=== PATIENT | male | born 1955 | race Caucasian/White ===

== ENCOUNTER 2017-04-14 19:58 | Emergency (ER) | payer BC ==
[~2017-04-14] VITALS: Ht 177.8 cm; Wt 70.7 kg
[2017-04-14 20:02] VITALS: TEMP 36.6; Ht 177.8 cm; Wt 70.7 kg
[2017-04-14] MEDS ORDERED: OMEG10007 PO (20:19)
--- NOTE | 2017-04-14 20:45 | DIAGNOSTIC IMAGING REPORT ---
RIGHT CLAVICLE CLINICAL HISTORY: right clavicle injury Right trauma COMPARISON: None. DISCUSSION: Grade 1 separation right acromioclavicular joint. No evidence for fracture. There is no evidence for soft tissue swelling. IMPRESSION: Grade 1 separation right acromioclavicular joint The above report was generated using voice recognition software. It may contain grammatical, syntax or spelling errors. Electronically signed by: Delfino Don M.D. 04/14/2017 8:44 PM Dictated Date/Time: 04/14/2017 8:44 PM
--- NOTE | 2017-04-14 21:47 | DIAGNOSTIC IMAGING REPORT ---
RIGHT UPPER EXTREMITY WITHOUT CT DOSE: 459.39 mGy.cm HISTORY: Trauma right clavicle injury, attn sternoclavicular joint Right TECHNIQUE: Multiaxial CT images of the right shoulder were performed and reformatted in the sagittal and coronal plane without the use of contrast. COMPARISON: Routine films same date FINDINGS: Examination can shows a grade 1 separation right acromioclavicular joint. No evidence for fracture. No evidence of dislocation. All remaining soft tissue structures are unremarkable. Pulmonary apex is clear. IMPRESSION: Mild grade 1 separation right acromioclavicular joint. No evidence for fracture. The above report was generated using voice recognition software. It may contain grammatical, syntax or spelling errors. Electronically signed by: Delfino Don M.D. 04/14/2017 9:46 PM Dictated Date/Time: 04/14/2017 9:43 PM
--- NOTE | 2017-04-14 21:59 | EMERGENCY ROOM VISIT NOTE ---
History First contact with patient: 20:07 Chief Complaint: CLAVICLE PAIN Stated Complaint: COLLAR BONE PAIN History of Present Illness The patient is a 61 year old male who presents to the Emergency Room with complaints of pain in the right clavicle. The patient states that 2 days ago, he had a fall on an outstretched right hand. The fall was mechanical in nature. He states he has had pain in the right collarbone since then. He states that he has full movement of the arm, but has a dull pain in the collarbone. He states that after the initial injury, his arm felt slightly numb , but this has improved. He rates his discomfort a 4/10. He denies any other injuries. He denies previous injuries to the collarbone. Review of Systems A complete 10 point review of systems was reviewed with the patient with pertinent positives and negatives as per history of present illness. All else were negative. Social History Smoking Status: Former Smoker Current/Historical Medications Scheduled Fish Oil (Burke-3), 2 CAP PO DAILY Physical Exam Vital Signs Date Time Temp Pulse Resp B/P (MAP) Pulse Ox O2 Delivery O2 Flow Rate FiO2 04/14/17 22:06 70 18 145/89 98 04/14/17 20:02 36.6 94 20 136/69 99 Room Air Physical Exam VITALS: Vitals are noted on the nurse's note and reviewed by myself. Vital signs stable. GENERAL: This is a 61-year-old male, in no acute distress, nondiaphoretic, well- developed well-nourished. HEART: Regular rate and rhythm without murmurs gallops or rubs. LUNGS: Clear to auscultation bilaterally without wheezes, rales or rhonchi. MUSCULOSKELETAL: There is tenderness to palpation across the entirety of the right clavicle with mild swelling at the sternoclavicular joint. There is no obvious deformity. No tenderness of the shoulder. Full range of motion of the right arm. 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 NEURO: Patient was alert and oriented to person place and time. Normal sensation to light and sharp touch. Medical Decision & Procedures ER Provider Diagnostic Interpretation: RIGHT CLAVICLE DISCUSSION: Grade 1 separation right acromioclavicular joint. No evidence for fracture. There is no evidence for soft tissue swelling. IMPRESSION: Grade 1 separation right acromioclavicular joint RIGHT UPPER EXTREMITY WITHOUT FINDINGS: Examination can shows a grade 1 separation right acromioclavicular joint. No evidence for fracture. No evidence of dislocation. All remaining soft tissue structures are unremarkable. Pulmonary apex is clear. IMPRESSION: Mild grade 1 separation right acromioclavicular joint. No evidence for fracture. Medical Decision Differential diagnosis includes clavicle fracture, acromioclavicular separation , sternoclavicular dislocation, among others. The patient was evaluated as above. Right clavicle x-ray was obtained and read by radiology showing a grade 1 AC joint separation. However, given the patient' s tenderness over the proximal aspect of the clavicle and mechanism of injury, I did have clinical concern for a possible sternoclavicular dislocation. For this reason, a CT scan was performed and was read by radiology to show no dislocation or fractures. Patient was informed of the findings and placed in an arm sling. He will follow-up with orthopedics. Conservative measures were discussed with the patient. He verbalized understanding of my assessment and treatment plan was discharged home in good condition. Medication Reconcilliation Current Medication List: was personally reviewed by me Blood Pressure Screening Patient's blood pressure: Elevated blood pressure Blood pressure disposition: Elevated BP felt to be situational Impression Primary Impression: Acromioclavicular joint separation, type 1 Departure Information Dispostion Home / Self-Care Condition GOOD Referrals No Doctor, Assigned (PCP) Arsen Kingston D.O. Patient Instructions My [facility] Additional Instructions You have been treated in the Emergency Department for a clavicle injury. For pain control, you can use the following [id number] medicines (if >12 yo): - Regular strength (325mg/tab) Tylenol (acetaminophen) 2 tabs every 4-6 hours as needed. Do not exceed 12 tablets in a 24 hour period. Avoid taking more than 4 grams (4000 mg) of Tylenol per day. This includes any other sources of acetaminophen you may take on a regular basis. - Regular strength (200 mg/tab) Advil (ibuprofen) 1-2 tabs every 4-6 hours as needed. Do not exceed a dose of 3200 mg per day. If this is a recent injury (<24 hrs), ice can be applied to the area of pain for the first 3 days to help decrease pain and inflammation. You have been provided the number for an Orthopaedic Surgeon. You should call this number as soon as possible to establish a follow-up visit from today's Emergency Department visit. Keep the shoulder sling in place until evaluated by Orthopedics. Return to the Emergency Department if your current symptoms worsen despite treatment course outlined above, or if you develop any of the following symptoms : intractable pain despite aforementioned treatment course or new onset of numbness or tingling of the arm. Problem Qualifiers Primary Impression: Acromioclavicular joint separation, type 1 Encounter type: initial encounter Laterality: right Qualified Codes: S43.101A - Unspecified dislocation of right acromioclavicular joint, initial encounter
[2017-04-14 22:06] VITALS: BP 145/89; PULSE 70; O2SAT 98
== END 2017-04-14 22:08 | disposition home or self-care (01) ==
LOC: C.EDB 20:00 → C.EDD 22:08
DX: S43.101A Unspecified dislocation of right acromioclavicular joint, initial encounter (principal); W19.XXXA Unspecified fall, initial encounter; Z87.891 Personal history of nicotine dependence